=== PATIENT | female | born 1945 | race Hispanic/Latino ===

== ENCOUNTER 2016-10-04 15:57 | Emergency (ER) | payer MEDICARE ==
[2016-10-04 16:28] LABS: Basophils % (Auto) 0.8 % (0.0-1.8); Eosinophils % (Auto) 1.6 % (0.0-4.3); Hematocrit 40.9 % (30.3-42.9); Hemoglobin 13.8 gm/dl (10.1-14.3); Mean Corpuscular HGB Conc 34 % (30-34); Mean Corpuscular Hemoglobin 31 pg (28-32); Mean Corpuscular Volume 92 fl (79-97); Platelet Count 248 K/mm3 (140-440); Red Blood Count 4.46 M/mm3 (3.65-5.03); Red Cell Distribution Width 13.3 % (13.2-15.2); White Blood Count 7.2 K/mm3 (4.5-11.0)
[2016-10-04 16:37] LABS: INR 0.98 (0.87-1.13)
[2016-10-04 16:38] LABS: Partial Thromboplastin Time 28.4 Sec. (24.2-36.6)
[2016-10-04 16:49] LABS: Anion Gap 20 mmol/L; Blood Urea Nitrogen 14 mg/dL (7-17); Calcium 9.3 mg/dL (8.4-10.2); Carbon Dioxide 22 mmol/L (22-30); Chloride 101.4 mmol/L (98-107); Glucose 88 mg/dL (65-100); Potassium 4.3 mmol/L (3.6-5.0); Sodium 139 mmol/L (137-145)
--- NOTE | 2016-10-04 18:01 | Cat Scan Report ---
FINAL REPORT EXAM: CT HEAD/BRAIN WO CON HISTORY: L side weakness TECHNIQUE: CT head without contrast PRIORS: None. FINDINGS: No acute intra-axial or extra-axial hemorrhage is identified. There is no evidence of midline shift or mass effect. The ventricles and sulci are within normal limits. Sanford-white matter differentiation is intact. No acute parenchymal abnormalities seen. Bony calvarium is grossly intact. Visualized portions of the mastoids and paranasal sinuses are unremarkable. There is a calcified extra-axial focus left frontal region 0.95 centimeters could reflect meningioma versus dural calcification. There is an additional frontal 0.9 centimeter partially calcified focus which may reflect additional meningioma. There is some calcification along the mid falx 0.37 centimeters indeterminate could reflect dural calcification or additional meningioma. There is no mass effect or adjacent brain edema pattern. IMPRESSION: Possible meningiomas largest 0.95 centimeters. If no prior exams are available for comparison these could be further characterized MRI with contrast. These do not demonstrate any acute mass effect or vasogenic edema changes Otherwise negative study.
[2016-10-04 22:46] VITALS: BP 136/81
--- NOTE | 2016-10-05 01:30 | Emergency Department Report ---
ED Neuro Deficit HPI - General Chief Complaint: Weakness Stated Complaint: POSS STROKE Time Seen by Provider: 10/05/16 00:22 Source: patient Mode of arrival: Ambulatory Limitations: No Limitations - History of Present Illness Initial Comments: Patient is a 70-year-old female with a history of COPD and chronic known meningioma status post multiple treatments in the past currently stable presenting today because of left sided upper and lower extremity unusual sensation. Patient states that she has a hard time describing it and at times states that it's heavy or just difficult to describe. She denies any specific numbness or decrease in feeling and any part of her body. She's not had any falls and has not had any changes in her voice or vision. She does have a sister with a prior CVA few weeks ago from which she had . Patient also complaining about just generally feeling a little bit weaker. She also states that she is very stressed with her work currently and is thinking about quitting her job. - Related Data Home Medications: Home Medications Medication Instructions Recorded Confirmed Last Taken Aclidinium Renault [Tudorza 1 puff INHALATION BID 04/24/13 01/25/16 04/23/13 Pressair] Albuterol Sulfate [Ventolin HFA] 90 mcg IH PRN PRN 04/24/13 01/25/16 04/19/13 Indacaterol Maleate [Arcapta 1 puff INHALATION QDAY 04/24/13 01/25/16 04/24/13 05:30 Neohaler] Montelukast [Singulair] 10 mg PO QDAY 04/24/13 01/25/16 04/23/13 Theophylline Anhydrous 200 mg PO BID 04/24/13 01/25/16 04/23/13 [Theophylline] Previous Rx's Medication Instructions Recorded Last Taken Type HYDROcodone/APAP 5-325 [[place] 1 each PO Q6HR PRN #20 tablet 01/25/16 Unknown Rx 5/325] Allergies/Adverse Reactions: Allergies Allergy/AdvReac Type Severity Reaction Status Date / Time amoxicillin trihydrate AdvReac Itching Verified 01/25/16 10:39 [From Amoxil] ciprofloxacin [From Cipro] AdvReac Hives Verified 01/25/16 10:39 ciprofloxacin HCl AdvReac Hives Verified 01/25/16 10:39 [From Cipro] diphenhydramine HCl AdvReac Hives Verified 01/25/16 10:39 [From Benadryl] nabumetone [From Relafen] AdvReac Itching Verified 01/25/16 10:39 naproxen AdvReac Itching Verified 01/25/16 10:39 ED Review of Systems ROS: Stated complaint: POSS STROKE Other details as noted in HPI Comment: All other systems reviewed and negative Constitutional: denies: chills, fever ENT: denies: throat pain Respiratory: denies: cough Cardiovascular: denies: chest pain Gastrointestinal: denies: abdominal pain, vomiting Genitourinary: denies: dysuria Skin: denies: rash Neurological: denies: headache Psychiatric: anxiety ED Past Medical Hx - Past Medical History Hx COPD: Yes Additional medical history: low blood sugar - Social History Smoking Status: Never Smoker Substance Use Type: None - Medications Home Medications: Home Medications Medication Instructions Recorded Confirmed Last Taken Type Aclidinium Renault [Tudorza 1 puff INHALATION BID 04/24/13 01/25/16 04/23/13 History Pressair] Albuterol Sulfate [Ventolin HFA] 90 mcg IH PRN PRN 04/24/13 01/25/16 04/19/13 History Indacaterol Maleate [Arcapta 1 puff INHALATION QDAY 04/24/13 01/25/16 04/24/13 05:30 History Neohaler] Montelukast [Singulair] 10 mg PO QDAY 04/24/13 01/25/16 04/23/13 History Theophylline Anhydrous 200 mg PO BID 04/24/13 01/25/16 04/23/13 History [Theophylline] HYDROcodone/APAP 5-325 [[place] 1 each PO Q6HR PRN #20 tablet 01/25/16 Unknown Rx 5/325] ED Neuro Physical Exam - General Limitations: No Limitations General appearance: alert, in no apparent distress Suspected Stroke: Yes - Head Head exam: Present: atraumatic - Eye Eye exam: Present: normal appearance - ENT ENT exam: Present: normal exam - Neck Neck exam: Present: normal inspection. Absent: meningismus - Respiratory Respiratory exam: Present: normal lung sounds bilaterally. Absent: respiratory distress - Cardiovascular Cardiovascular Exam: Present: regular rate, normal rhythm - GI/Abdominal GI/Abdominal exam: Present: soft. Absent: distended, tenderness, guarding - Neurological Exam Neurological exam: Present: alert, oriented X3, CN II-XII intact, normal gait. Absent: motor sensory deficit - NIHSS Assessment Interval: Baseline 1a. Level of Consciousness: alert 1b. LOC Questions: answers correctly 1c. LOC Commands: performs tasks correctly 2. Best Gaze: normal 3. Visual: no visual loss 4. Facial Palsy: normal symmetrical movement 5b. Motor Arm Right: no drift 5a. Motor Arm Left: no drift 6a. Motor Leg Left: no drift 6b. Motor Leg Right: no drift 7. Limb Ataxia: absent 8. Sensory: normal 9. Best Language: no aphasia 10. Dysarthria: normal 11. Extinction/Inattention: no abnormality Total Score: 0 Stroke Severity: No Stroke Symptoms - Psychiatric Psychiatric exam: Present: anxious - Skin Skin exam: Present: intact ED Course Vital Signs 10/04/16 10/04/16 10/05/16 16:02 22:45 00:57 Temperature 98.3 F 97.9 F Pulse Rate 110 H 89 Respiratory 16 12 20 Rate Blood Pressure 123/83 136/81 O2 Sat by Pulse 95 100 100 Oximetry - Lab Data Result diagrams: 10/04/16 16:10 10/04/16 16:10 Lab Results 10/04/16 10/04/16 10/04/16 Range/Units 15:57 16:10 16:10 WBC 7.2 (4.5-11.0) K/mm3 RBC 4.46 (3.65-5.03) M/mm3 Hgb 13.8 (10.1-14.3) gm/dl Hct 40.9 (30.3-42.9) % MCV 92 (79-97) fl MCH 31 (28-32) pg MCHC 34 (30-34) % RDW 13.3 (13.2-15.2) % Plt Count 248 (140-440) K/mm3 Lymph % (Auto) 16.5 (13.4-35.0) % Rock % (Auto) 10.9 H (0.0-7.3) % Eos % (Auto) 1.6 (0.0-4.3) % Baso % (Auto) 0.8 (0.0-1.8) % Lymph # 1.2 (1.2-5.4) K/mm3 Rock # 0.8 (0.0-0.8) K/mm3 Eos # 0.1 (0.0-0.4) K/mm3 Baso # 0.1 (0.0-0.1) K/mm3 Seg Neutrophils % 70.2 H (40.0-70.0) % Seg Neutrophils # 5.0 (1.8-7.7) K/mm3 PT 12.9 (12.2-14.9) Sec. INR 0.98 (0.87-1.13) APTT 28.4 (24.2-36.6) Sec. Thrombin Time (15.1-19.6) Sec. Sodium (137-145) mmol/L Potassium (3.6-5.0) mmol/L Chloride (98-107) mmol/L Carbon Dioxide (22-30) mmol/L Anion Gap mmol/L BUN (7-17) mg/dL Creatinine (0.7-1.2) mg/dL Estimated GFR ml/min BUN/Creatinine Ratio % Glucose (65-100) mg/dL POC Glucose 89 (70-105) Calcium (8.4-10.2) mg/dL Troponin T (0.00-0.029) ng/mL 10/04/16 10/04/16 Range/Units 16:10 16:10 WBC (4.5-11.0) K/mm3 RBC (3.65-5.03) M/mm3 Hgb (10.1-14.3) gm/dl Hct (30.3-42.9) % MCV (79-97) fl MCH (28-32) pg MCHC (30-34) % RDW (13.2-15.2) % Plt Count (140-440) K/mm3 Lymph % (Auto) (13.4-35.0) % Rock % (Auto) (0.0-7.3) % Eos % (Auto) (0.0-4.3) % Baso % (Auto) (0.0-1.8) % Lymph # (1.2-5.4) K/mm3 Rock # (0.0-0.8) K/mm3 Eos # (0.0-0.4) K/mm3 Baso # (0.0-0.1) K/mm3 Seg Neutrophils % (40.0-70.0) % Seg Neutrophils # (1.8-7.7) K/mm3 PT (12.2-14.9) Sec. INR (0.87-1.13) APTT (24.2-36.6) Sec. Thrombin Time 16.1 (15.1-19.6) Sec. Sodium 139 (137-145) mmol/L Potassium 4.3 (3.6-5.0) mmol/L Chloride 101.4 (98-107) mmol/L Carbon Dioxide 22 (22-30) mmol/L Anion Gap 20 mmol/L BUN 14 (7-17) mg/dL Creatinine 1.0 (0.7-1.2) mg/dL Estimated GFR 55 ml/min BUN/Creatinine Ratio 14.00 % Glucose 88 (65-100) mg/dL POC Glucose (70-105) Calcium 9.3 (8.4-10.2) mg/dL Troponin T < 0.010 (0.00-0.029) ng/mL - Medical Decision Making All the patient's symptoms are potentially related turning for a CVA her exam is completely normal with no sensory or motor deficits. Labs and CAT scan had been ordered prior to my evaluation. Labs are unremarkable. CAT scan shows some small meningiomas versus calcification. Patient is well aware of this and has had followed up for well over a decade. I offered the patient admission to have further workup to see if these symptoms could be a very subtle CVA. Patient strongly prefers to have outpatient management does not want admission. I offered neurology follow-up. Patient appears reliable and will plan to follow up with a neurologist. Critical care attestation.: If time is entered above; I have spent that time in minutes in the direct care of this critically ill patient, excluding procedure time. ED Disposition Clinical Impression: Generalized weakness Disposition: DISCHARGED TO HOME OR SELFCARE Is pt being admited?: No Does the pt Need Aspirin: No Condition: Stable Instructions: Weakness (ED) Additional Instructions: Please follow up with the primary care physician and a neurologist in the next 2 -3 days. Return to the ER immediately by calling 911 if your symptoms significantly worsen or you develop new symptoms especially numbness, weakness in an arm or leg, difficulty walking or talking. Referrals: STEVEN LACKEY MD [Primary Care Provider] - 3-5 Days Forms: Work/School Release Form(ED) Time of Disposition: 01:31
== END 2016-10-05 01:48 | disposition home or self-care (01) ==
LOC: ED 15:57
DX: R53.1 Weakness (principal); J44.9 Chronic obstructive pulmonary disease, unspecified
CPT/HCPCS: 36415; 70450; 80048; 82962; 84484; 85025; 85610; 85670; 85730; 93005; 93010; 99284

== ENCOUNTER 2017-08-11 09:21 | Outpatient (CLI) | payer MEDICARE ==
--- NOTE | 2017-08-11 16:27 | Mammography Report ---
BONE DEXA:08/11/17 09:21:00 CLINICAL: Postmenopausal. COMPARISON: 07/29/13 TECHNIQUE: Two site bone DEXA performed on an Hologic scanner. FINDINGS: The average BMD of the lumbar spine L1-L4 is 0.783g/cm squared with a T-score of -2.4 and a Z-score of -0.3. This compares to 0.763g/cm squared on the last exam and represents a +2.6% change from the previous baseline. The average BMD of the left hip is 0.759g/cm squared with a T-score of -1.5 and a Z-score of 0. This compares to 0.735g/cm squared on the last exam and represents a +3.2% change from the previous baseline. IMPRESSION: 1. WHO classification: Osteopenia with increased fracture risk based on both spine and left hip measurements. 2. A modest improvement in both spine and left hip BMD compared to the prior exam. RECOMMENDATION: Clinical correlation and routine screening. DEFINITIONS: BMD = Bone Mineral Density T-score = BMD related to mean peak bone mass of young adult (mean expressed in Standard Deviation) Z-score = Age matched BMD expressed in SD World Health Organization (WHO) Diagnostic Criteria Normal T-score > -1 SD Osteopenia T-score between -1 and -2.4 SD Osteoporosis T-score -2.5 SD or below NOTE: BMD is not the only risk factor for fracture; also consider factors such as the patient's age, risk of falling, previous osteoporotic fracture, family history of osteoporotic fractures, current smoker, and low body weight. Z-scores are not calculated if >80 years of age.
--- NOTE | 2017-08-14 11:33 | Mammography Report ---
BILATERAL DIGITAL SCREENING MAMMOGRAM with CAD: 08/11/17 09:21:00 CLINICAL: Routine screening. COMPARISON:07/29/13 FINDINGS: The breasts are almost entirely fatty. No new mass, architectural distortion or suspicious calcifications. IMPRESSION: No mammographic evidence of malignancy. BI-RADS CATEGORY: 2 -- Benign RECOMMENDATION: Routine mammographic screening in one year. COMMENT: Patient follow-up letters are generated by our [employer] application.
== END 2017-08-11 09:22 | disposition home or self-care (01) ==
LOC: MAMMO 09:21
PROVIDERS: ATTEND Internal Medicine
DX: Z12.31 Encounter for screening mammogram for malignant neoplasm of breast (principal); M81.0 Age-related osteoporosis without current pathological fracture; M85.88 Other specified disorders of bone density and structure, other site; Z78.0 Asymptomatic menopausal state
CPT/HCPCS: 77067; 77080

== ENCOUNTER 2018-10-31 09:23 | Outpatient (CLI) | payer MEDICARE ==
--- NOTE | 2018-10-31 11:18 | Mammography Report ---
BILATERAL DIGITAL SCREENING MAMMOGRAM with CAD: 10/31/18 09:23:00 CLINICAL: Routine screening. COMPARISON: 08/11/17 FINDINGS: The breasts are mostly fatty with a few scattered lateral fibroglandular densities.No mass, architectural distortion or suspicious calcifications. IMPRESSION: No mammographic evidence of malignancy. BI-RADS CATEGORY: 1 -- Negative RECOMMENDATION: Routine mammographic screening in one year. COMMENT: Patient follow-up letters are generated by our [employer] application.
== END 2018-10-31 09:24 | disposition home or self-care (01) ==
LOC: MAMMO 09:23
PROVIDERS: ATTEND Internal Medicine
DX: Z12.31 Encounter for screening mammogram for malignant neoplasm of breast (principal); J44.9 Chronic obstructive pulmonary disease, unspecified; Z90.710 Acquired absence of both cervix and uterus
CPT/HCPCS: 77067

== ENCOUNTER 2019-01-02 07:54 | Day surgery (SDC) | payer MEDICARE ==
[~2019-01-02 07:54] MED LIST: NACL 0.9% 1000 ML 1,000 ML IV SCH
--- NOTE | 2019-01-02 08:54 | Anesthesia Day of Surgery ---
Anesthesia Day of Surgery - Day of Surgery Patient Examined: Yes Patient H&P Reviewed: Yes Patient is NPO: Yes
--- NOTE | 2019-01-02 08:56 | Anesthesia Consultation ---
Anesthesia Consult and Med Hx Date of service: 01/02/19 - Airway Anesthetic Teeth Evaluation: Poor, Chipped ROM Head & Neck: Adequate Mental/Hyoid Distance: Adequate Mallampati Class: Class II Intubation Access Assessment: Probably Good - Pre-Operative Health Status ASA Pre-Surgery Classification: ASA3 Proposed Anesthetic Plan: MAC - Pulmonary Hx Smoking: Yes COPD: Yes (ORELLANA) Home Oxygen Therapy: Yes - Cardiovascular System Hx Coronary Artery Disease: No (Had NST about a year ago and ok per pt) - Central Nervous System Hx Neuromuscular Disorder: Yes (Parkinsons) Hx Psychiatric Problems: Yes - Other Systems Hx Cancer: Yes
[2019-01-02] MEDS ORDERED: DIPRIVAN 10 MG/ML IV ONE ×3 (09:38)
--- NOTE | 2019-01-02 10:17 | Operative Report ---
Operative Report Operative Report: DOS: 01/02/19 SURGEON: Marino Rodriguez MD COLONOSCOPY with snare polypectomy REPORT PREOPERATIVE AND POSTOPERATIVE DIAGNOSIS: heme pos stool DESCRIPTION OF PROCEDURE: The colonoscope was passed to the cecum as identified by the ileocecal valve and appendiceal orifice. Scope was carefully withdrawn. Retroflexion was performed in the rectum. At the end of procedure, the scope was cleaned using normal technique. Vital signs monitored continuously throughout. SEDATION: Provided by [facility]iology [facility]. Quality of the prep was limited COMPLICATIONS: None. ESTIMATED BLOOD LOSS: minimal FINDINGS: * 9mm sessile polyp in the cecum removed by hot snare polypectomy * 4mm sessile polyp in the ascending colon removed by cold snare polypectomy, specimen NOT retrieved. * Large pedunculated 1.5cm polyp in the sigmoid colon, 2cc NS injected into the base of the stalk, then hot snare was used to resect the polyp en bloc * Moderate to severe diverticulosis of the entire colon, though most significant concentration was in the sigmoid colon * Small internal hemorrhoids * Remainder of the exam was normal RECOMMENDATIONS: * f/u path * repeat colon 1 year due to limited prep and large sigmoid polyp (again consider peds scope as was very helpful in completing the procedure due to the diverticulosis)
[2019-01-02 16:53] VITALS: BP 105/80
== END 2019-01-02 07:55 | disposition home or self-care (01) ==
LOC: GIO 07:54
PROVIDERS: ATTEND Student in an Organized Health Care Education/Training Program
DX: D12.0 Benign neoplasm of cecum (principal); D12.5 Benign neoplasm of sigmoid colon; K57.30 Diverticulosis of large intestine without perforation or abscess without bleeding; K64.8 Other hemorrhoids; J44.9 Chronic obstructive pulmonary disease, unspecified; F32.9 Major depressive disorder, single episode, unspecified; F41.9 Anxiety disorder, unspecified; Z88.6 Allergy status to analgesic agent; Z88.8 Allergy status to other drugs, medicaments and biological substances; Z79.899 Other long term (current) drug therapy; Z87.891 Personal history of nicotine dependence; Z98.890 Other specified postprocedural states; Z90.49 Acquired absence of other specified parts of digestive tract; Z90.710 Acquired absence of both cervix and uterus
CPT/HCPCS: 45381; 45385; 88305; J2704; J7030